=== PATIENT | male | born 1955 | race Caucasian/White ===

== ENCOUNTER → 2021-01-02 | Outpatient (REF) | payer OTHER ==
[2021-01-02 18:58] LABS: APPEARANCE, URINE CLEAR (CLEAR); BACTERIA, URINE AUTO NEGATIVE (NEGATIVE); BILIRUBIN, URINE AUTO NEGATIVE (NEGATIVE); BLOOD, URINE BLOOD NEGATIVE (NEGATIVE); COLOR, URINE YELLOW (YELLOW); GLUCOSE, URINE (UA) AUTO NEGATIVE (NEGATIVE); KETONE, URINE AUTO NEGATIVE (NEGATIVE); LEUKOCYTE ESTERASE, URINE AUTO NEGATIVE (NEGATIVE); NITRITE, URINE AUTO NEGATIVE (NEGATIVE); PROTEIN, URINE AUTO NEGATIVE (NEGATIVE); RBC, URINE AUTO 0 /HPF (0-3); SPECIFIC GRAVITY URINE AUTO 1.016 (1.002-1.035); SQUAMOUS EPITHELIAL CELL UR AU 0 /HPF (0-6); UROBILINOGEN, URINE AUTO 0.2 mg/dL (0.0-2.0); WBC, URINE AUTO 0 /HPF (0-3)
== END ==
LOC: M SFHCWAGY 18:21
PROVIDERS: ATTEND Nurse Practitioner Women's Health
DX: N40.0 Benign prostatic hyperplasia without lower urinary tract symptoms (principal)

== ENCOUNTER → 2021-04-01 | Outpatient (CLI) | payer OTHER ==
[~2021-04-01] MED LIST: AMLO2.5T3 PO; LISI20TA37 PO; OMEGCAP9 PO; ULTR50TA8 PO; VITMTA PO; ZYRTTAB8 PO
== END ==
LOC: M LABSMTC 09:17
PROVIDERS: ATTEND Anesthesiology
DX: Z01.812 Encounter for preprocedural laboratory examination (principal); Z20.822 Contact with and (suspected) exposure to COVID-19

== ENCOUNTER 2021-04-05 12:36 | Day surgery (SDC) | payer OTHER ==
[~2021-04-05] VITALS: Ht 177.8 cm; Wt 85.5 kg
[~2021-04-05 12:36] MED LIST changes: +LIDOCAINE 1% MDV 20ML VIAL SQ PRN; +LR 1,000 ML IV SCH; -ULTR50TA8 PO; +ceFAZolin SOD 2 GM in IV 1 EA IV SCH
[2021-04-05] MEDS ORDERED: fentaNYL 250 MCG/5 ML INJECTION As Ordered ONE (13:41)
[2021-04-05] MEDS ORDERED: MIDAZOLAM INJ 2MG/2ML VIAL (J2250 PER 1MG) As Ordered ONE (13:42)
[2021-04-05] MEDS ORDERED: LIDOCAINE 2% 100MG/5ML SDV (FOR ANES.) As Ordered ONE (13:47)
[2021-04-05] MEDS ORDERED: propofoL 200 MG/20 ML VIAL As Ordered ONE (13:47)
[2021-04-05] MEDS ORDERED: ROCURONIUM BROMIDE 50 MG/5 ML VIAL As Ordered ONE ×2 (13:48→14:57)
[2021-04-05] MEDS ORDERED: BUPIVACAINE/EPIN 0.5% 30 ML VIAL As Ordered ONE (14:02)
[2021-04-05] MEDS ORDERED: ceFAZolin SOD 2 GM in IV 1 EA IV ONE (14:15)
[2021-04-05] MEDS ORDERED: ceFAZolin 2 GM/D5W 50 ML IV BAG (J0690 PER 500MG) As Ordered ONE (14:31)
[2021-04-05] MEDS ORDERED: ULTR50TA8 PO (14:36)
[2021-04-05] MEDS ORDERED: PHENYLephrine 500MCG 5ML (100MCG/ML) SYRINGE As Ordered ONE (14:58)
[2021-04-05] MEDS ORDERED: dexameTHASONE 4 MG/ML 1ML VIAL (J1100 PER 1MG) As Ordered ONE (15:15)
[2021-04-05] MEDS ORDERED: ACETAMINOPHEN 1000MG 100ML IV BTL (OFIRMEV) (J0131 PER 10MG) As Ordered ONE (15:28)
[2021-04-05] MEDS ORDERED: KETOROLAC 60MG 2ML VIAL As Ordered ONE (15:38)
[2021-04-05] MEDS ORDERED: ONDANSETRON 4MG/2ML VIAL As Ordered ONE (15:38)
[2021-04-05] MEDS ORDERED: SUGAMMADEX SODIUM 500 MG/5 ML VIAL (BRIDION) As Ordered ONE (15:49)
[2021-04-05] MEDS ORDERED: LR 1,000 ML IV SCH (16:45)
[2021-04-05] MEDS ORDERED: fentaNYL 100 MCG/2 ML INJECTION IV PRN (16:45)
[2021-04-05] MEDS ORDERED: ONDANSETRON 4MG/2ML VIAL IV PRN (16:45)
[2021-04-05] MEDS ORDERED: oxyCODONE 5MG TAB PO PRN (16:45)
[2021-04-05] MEDS ORDERED: NS 1,000 ML IV SCH (16:50)
[2021-04-05] MEDS ORDERED: traMADol 50 MG TAB PO PRN (16:50)
[2021-04-05 18:01] VITALS: BP 133/68
[2021-04-05] MEDS ORDERED: KETOROLAC 30 MG/ML 1ML VIAL IV SCH (22:00)
== END 2021-04-05 18:35 | disposition home or self-care (01) ==
LOC: M SDC 12:36
PROVIDERS: ATTEND Surgery
DX: K40.90 Unilateral inguinal hernia, without obstruction or gangrene, not specified as recurrent (principal); I10 Essential (primary) hypertension; E78.00 Pure hypercholesterolemia, unspecified; N40.0 Benign prostatic hyperplasia without lower urinary tract symptoms; R12 Heartburn; R06.83 Snoring; Z79.899 Other long term (current) drug therapy; Z88.5 Allergy status to narcotic agent; Z91.040 Latex allergy status
CPT/HCPCS: 49650; C1781; J0131; J0690; J1100; J1885; J2250; J2370; J2405; J3010; S2900

== ENCOUNTER → 2021-04-23 | Outpatient (CLI) | payer OTHER ==
[~2021-04-23] MED LIST changes: -LIDOCAINE 1% MDV 20ML VIAL SQ PRN; -LR 1,000 ML IV SCH; +ULTR50TA8 PO; -ceFAZolin SOD 2 GM in IV 1 EA IV SCH
[2021-04-24 23:07] LABS: PSA TOTAL 10.3 ng/mL (0.0-4.0)
== END ==
LOC: M PLALAB 09:06
PROVIDERS: ATTEND Nurse Practitioner Women's Health
DX: R97.20 Elevated prostate specific antigen [PSA] (principal)

== ENCOUNTER → 2021-05-20 | Outpatient (CLI) | payer OTHER ==
[~2021-05-20] MED LIST changes: +LIDOCAINE 1% MDV 20ML VIAL As Ordered ONE
[2021-05-20 08:48] VITALS: BP 179/85
== END ==
LOC: M IRPRO 07:56
PROVIDERS: ATTEND Surgery
DX: K91.873 Postprocedural seroma of a digestive system organ or structure following other procedure (principal); K40.90 Unilateral inguinal hernia, without obstruction or gangrene, not specified as recurrent

== ENCOUNTER → 2021-06-07 | Outpatient (CLI) | payer OTHER ==
[2021-06-07 10:29] VITALS: BP 162/85
== END ==
LOC: M IRPRO 09:37
PROVIDERS: ATTEND Surgery
DX: K91.873 Postprocedural seroma of a digestive system organ or structure following other procedure (principal)

== ENCOUNTER → 2021-07-09 | Outpatient (POV) | payer OTHER ==
[~2021-07-09] VITALS: Ht 177.8 cm; Wt 85.4 kg
[~2021-07-09] MED LIST changes: -LIDOCAINE 1% MDV 20ML VIAL As Ordered ONE
[2021-07-09 10:26] VITALS: BP 167/88
== END ==
LOC: M IRPOV 10:16
PROVIDERS: ATTEND Radiology Diagnostic Radiology
DX: L76.34 Postprocedural seroma of skin and subcutaneous tissue following other procedure (principal); Z79.899 Other long term (current) drug therapy; Z88.5 Allergy status to narcotic agent; Z91.040 Latex allergy status

== ENCOUNTER → 2021-07-18 | Outpatient (CLI) | payer OTHER ==
[~2021-07-18] MED LIST changes: +AMLO1TAB24 PO; +GASTROGRAFIN SOLUTION 30ML (Q9963) As Ordered ONE; +ISOVUE-370 76% 100ML VIAL As Ordered ONE; +VITA-294 PO
== END ==
LOC: M RAD 13:57
PROVIDERS: ATTEND Radiology Diagnostic Radiology
DX: L76.34 Postprocedural seroma of skin and subcutaneous tissue following other procedure (principal)
CPT/HCPCS: 72193; Q9963; Q9967

== ENCOUNTER → 2021-07-22 | Outpatient (CLI) | payer OTHER ==
[~2021-07-22] MED LIST changes: -GASTROGRAFIN SOLUTION 30ML (Q9963) As Ordered ONE; +ISOVUE-300 61% 50ML VIAL As Ordered ONE; -ISOVUE-370 76% 100ML VIAL As Ordered ONE; +LIDOCAINE 1% MDV 20ML VIAL As Ordered ONE; +SODIUM TETRADECYL SULFATE(3%)30MG/ML 2ML VIAL (SOTRADECOL) As Ordered ONE
[2021-07-22] MEDS: NS 1,000 ML IV SCH (12:43)
[2021-07-22 16:20] VITALS: BP 156/79
== END ==
LOC: M IRPRO 11:51
PROVIDERS: ATTEND Radiology Diagnostic Radiology
DX: L76.32 Postprocedural hematoma of skin and subcutaneous tissue following other procedure (principal)
CPT/HCPCS: 49185; C1894; Q9967

== ENCOUNTER → 2021-08-06 | Outpatient (POV) | payer OTHER ==
[~2021-08-06] VITALS: Ht 177.8 cm; Wt 85.4 kg
[~2021-08-06] MED LIST changes: -ISOVUE-300 61% 50ML VIAL As Ordered ONE; -LIDOCAINE 1% MDV 20ML VIAL As Ordered ONE; -SODIUM TETRADECYL SULFATE(3%)30MG/ML 2ML VIAL (SOTRADECOL) As Ordered ONE
[2021-08-06 08:30] VITALS: BP 144/82
== END ==
LOC: M IRPOV 08:17
PROVIDERS: ATTEND Radiology Diagnostic Radiology
DX: L76.34 Postprocedural seroma of skin and subcutaneous tissue following other procedure (principal); Z88.5 Allergy status to narcotic agent; Z91.040 Latex allergy status

== ENCOUNTER → 2022-05-16 | Outpatient (CLI) | payer MEDICARE ==
[2022-05-16 11:41] LABS: BLOOD UREA NITROGEN 24 MG/DL (9-23); CREATININE FOR GFR 1.26 MG/DL (0.70-1.30); GLOMERULAR FILTRATION RATE > 60.0 (>49)
== END ==
LOC: M LAB 10:40
PROVIDERS: ATTEND Urology
DX: R97.20 Elevated prostate specific antigen [PSA] (principal); N42.89 Other specified disorders of prostate

== ENCOUNTER → 2022-05-23 | Outpatient (CLI) | payer MEDICARE | LOC: M RAD 09:59 | PROVIDERS: ATTEND Urology | DX: C61 Malignant neoplasm of prostate (principal); M47.812 Spondylosis without myelopathy or radiculopathy, cervical region | CPT/HCPCS: 78306; A9503 ==

== ENCOUNTER → 2022-06-04 | Outpatient (REF) | payer MEDICARE ==
[2022-06-04 15:01] LABS: INR 0.98; PROTHROMBIN TIME 13.2 SECONDS (12.5-14.5)
[2022-06-04 15:02] LABS: PARTIAL THROMBOPLASTIN TIME 29.2 SECONDS (24.8-34.2)
== END ==
LOC: M LAB REF 12:41
PROVIDERS: ATTEND Internal Medicine
DX: Z01.818 Encounter for other preprocedural examination (principal)

== ENCOUNTER → 2023-01-09 | Outpatient (REF) | payer MEDICARE ==
[2023-01-11 08:07] LABS: LDL DIRECT 73 mg/dL (0-99)
== END ==
LOC: M LAB REF 16:28
PROVIDERS: ATTEND Internal Medicine
DX: E78.2 Mixed hyperlipidemia (principal)

== ENCOUNTER → 2023-01-12 | Outpatient (CLI) | payer MEDICARE | LOC: M LAB 07:49 | PROVIDERS: ATTEND Nurse Practitioner Adult Health | DX: Z85.46 Personal history of malignant neoplasm of prostate (principal); E78.2 Mixed hyperlipidemia ==

== ENCOUNTER → 2023-11-12 | Outpatient (CLI) | payer MEDICARE | LOC: M LAB 12:11 | PROVIDERS: ATTEND Urology | DX: C61 Malignant neoplasm of prostate (principal) ==

== ENCOUNTER → 2024-06-14 | Outpatient (CLI) | payer MEDICARE | LOC: M LAB 11:20 | PROVIDERS: ATTEND Urology | DX: C61 Malignant neoplasm of prostate (principal) ==

== ENCOUNTER → 2024-09-05 | Outpatient (CLI) | payer MEDICARE | LOC: M LAB 11:24 | PROVIDERS: ATTEND Urology | DX: C61 Malignant neoplasm of prostate (principal) ==